=== PATIENT | female | born 1945 | race Caucasian/White ===

== ENCOUNTER 2023-05-15 14:55 | Emergency (ER) | payer OTHER ==
[2023-05-15 15:34] VITALS: BP 132/63; PULSE 69; RESP 18; TEMP 98.2; BMI 25.0
[2023-05-15] MEDS ORDERED: ACETAMINOPHEN 325 MG TABLET (FP) PO ONE (18:28)
[2023-05-15] MEDS ORDERED: ACETAMINOPHEN 325 MG TABLET (FP) ONE (18:54)
== END 2023-05-15 19:46 | disposition home or self-care (01) ==
LOC: JERFT 14:55
DX: S00.81XA Abrasion of other part of head, initial encounter (principal); M26.4 Malocclusion, unspecified; R07.81 Pleurodynia; W01.198A Fall on same level from slipping, tripping and stumbling with subsequent striking against other object, initial encounter; Y93.01 Activity, walking, marching and hiking
CPT/HCPCS: 70450-TC; 70486-TC; 71046-TC-FY; 71101-TC-LT-FY; 72125-TC; 99284-25